=== PATIENT | male | born 1945 | race African-American/Black ===

== ENCOUNTER 2017-09-19 08:08 | Emergency (ER) | payer MEDICARE ==
[~2017-09-19] VITALS: Ht 190.5 cm; Wt 106.5 kg
[2017-09-19 08:30] VITALS: BP 203/122; PULSE 90; RESP 16; TEMP 98.3; O2SAT 98
[2017-09-19] MEDS ORDERED: SODIUM CHLORIDE 0.9% FLUSH 10 ML FLUSH IVF PRN (08:30)
[2017-09-19] MEDS ORDERED: LISINOPRIL 20 MG TAB PO ONE (08:30)
[2017-09-19] MEDS ORDERED: TETANUS/DIPHTHERIA TOXOID ADULT 0.5 ML VIAL IM ONE (08:30)
[2017-09-19] MEDS ORDERED: ceFAZolin 2 GM PREMIX 50 ML IV ONE (08:30)
[2017-09-19] MEDS ORDERED: LIDOCAINE HCL 1% 20 ML VIAL INFIL ONE (08:45)
[2017-09-19 08:56] LABS: AUTOMATED NEUTROPHIL # 2.6 TH/MM3 (1.8-7.7); EOSINOPHIL # 0.1 TH/MM3 (0-0.4); EOSINOPHIL % 1.6 % (0.0-4.0); HEMATOCRIT 43.3 % (39.0-51.0); HEMOGLOBIN 14.6 GM/DL (13.0-17.0); LYMPH % 34.9 % (9.0-44.0); LYMPHOCYTE # 1.6 TH/MM3 (1.0-4.8); MEAN CELL VOLUME 79.2 FL (80.0-100.0); MEAN CORPUSCULAR HEMOGLOBIN 26.7 PG (27.0-34.0); MEAN CORPUSCULAR HGB CONC 33.7 % (32.0-36.0); MEAN PLATELET VOLUME 6.7 FL (7.0-11.0); MONO % 5.8 % (0.0-8.0); MONOCYTE # 0.3 TH/MM3 (0-0.9); NEUT % 56.7 % (16.0-70.0); PLATELET COUNT 274 TH/MM3 (150-450); RED BLOOD COUNT 5.47 MIL/MM3 (4.50-5.90); RED CELL DISTRIBUTION WIDTH 13.2 % (11.6-17.2); WHITE BLOOD COUNT 4.6 TH/MM3 (4.0-11.0)
[2017-09-19 09:05] LABS: BICARBONATE 29.6 MEQ/L (21.0-32.0); CALCIUM 8.7 MG/DL (8.5-10.1)
[2017-09-19] MEDS ORDERED: LIDOCAINE HCL 1% PF 10 ML VIAL ONE (09:12)
--- NOTE | 2017-09-19 09:13 | RADRPT ---
EXAM DATE/TIME: 09/19/2017 08:48 [facility] COMPARISON: No previous studies available for comparison. INDICATIONS : Dislocation & laceration to anterior aspect of right hand second digit post fall today. MEDICAL HISTORY : Hypertension. SURGICAL HISTORY : None. ENCOUNTER: Initial ACUITY: 1 day PAIN SCORE: 5/10 LOCATION: Right hand second digit FINDINGS: 3 views of the right second finger reveal an acute dislocation involving the PIP joint of the second finger. The middle phalanx has been displaced towards the dorsum of the proximal phalanx. No fracture appreciated. Soft tissue swelling noted. Remaining bony structures are unremarkable. CONCLUSION: Dislocation at the PIP joint of the second finger without discrete fracture. Gil Mccabe Jr., MD on September 19, 2017 at 9:10 Board Certified Radiologist. This report was verified electronically.
[2017-09-19] MEDS ORDERED: ASPI81TA23 PO (09:33)
[2017-09-19] MEDS ORDERED: LISI-515 PO (09:33)
[2017-09-19 09:48] VITALS: BP 173/84; PULSE 59; RESP 16; O2SAT 96
[2017-09-19] MEDS ORDERED: CEPH-460 PO (09:48)
--- NOTE | 2017-09-19 09:56 | PD ---
HPI Chief Complaint: Injury Time Seen by Provider: 08:12 Travel History International Travel<30 days: No Contact w/Intl Traveler<30days: No Traveled to known affect area: No History of Present Illness HPI The patient 71 years old and upon his morning walk attempted to jump from a ramp resulting in a trip and fall onto outstretched right hand. He injured the right index finger and struck the right upper lip upon the ground as well as the right knee. He was ambulatory immediately thereafter. No loss of consciousness or syncopal/presyncopal symptoms preceded the fall. Very mild continuous pain is reported at the right index finger with a gross dislocation and blood. Onset sudden. Duration about 30 minutes prior to ER arrival. He does not recall last tetanus. PFSH Past Medical History Hx Anticoagulant Therapy: Yes (asa 81mg once a week) Cardiovascular Problems: Yes (htn on meds) Hypertension: Yes Tetanus Vaccination: < 5 Years Influenza Vaccination: Yes Past Surgical History Other Surgery: Yes (bilat bunionectomy) Social History Alcohol Use: No Tobacco Use: No Allergies-Medications (Allergen,Severity, Reaction): Coded Allergies: No Known Allergies (Unverified , 09/19/17) Reported Meds & Prescriptions Reported Meds & Active Scripts Active Reported Aspirin EC (Aspirin) 81 Mg Tabdr 81 Mg PO WEEKLY Lisinopril 20 Mg Tab 20 Mg PO DAILY Review of Systems Except as stated in HPI: all other systems reviewed are Neg General / Constitutional: No: Fever Cardiovascular: No: Chest Pain or Discomfort, Palpitations, Tachycardia Respiratory: No: Shortness of Breath Physical Exam Narrative GENERAL: 71-year-old male well-nourished well-developed SKIN: Warm and dry. HEAD: Trace abrasion of the right upper lip. There is swelling and tenderness in the right upper lip. Friend dentition is normal. Normocephalic. EYES: Pupils equal and round. No scleral icterus. No injection or drainage. ENT: No nasal bleeding or discharge. Mucous membranes pink and moist. NECK: Trachea midline. No JVD. CARDIOVASCULAR: Regular rate and rhythm. RESPIRATORY: No accessory muscle use. Clear to auscultation. Breath sounds equal bilaterally. GASTROINTESTINAL: Abdomen soft, non-tender, nondistended. Hepatic and splenic margins not palpable. MUSCULOSKELETAL: Right index finger shows a gross deformity with a laceration of about 2 cm with bone protruding through. There is preserved passive range of motion of the right index finger. Sensation is preserved to the distal phalanges of the right index finger. The trace abrasion overlying the right patella. NEUROLOGICAL: Awake and alert. No obvious cranial nerve deficits. Motor grossly within normal limits. Five out of 5 muscle strength in the arms and legs. Normal speech. PSYCHIATRIC: Appropriate mood and affect; insight and judgment normal. Data Data Last Documented VS Vital Signs Date Time Temp Pulse Resp B/P (MAP) Pulse Ox O2 Delivery O2 Flow Rate FiO2 09/19/17 09:04 88 16 98 Room Air 09/19/17 08:30 98.3 203/122 (149) Orders Orders Basic Metabolic Panel (Bmp) (09/19/17 08:12) Complete Blood Count With Diff (09/19/17 08:12) Iv Access Insert/Monitor (09/19/17 08:12) Wound Care (09/19/17 08:12) Finger ([id number]) (09/19/17 ) Cefazolin 2 Gm Premix (Ancef 2 Gm Premix (09/19/17 08:30) Lisinopril (Prinivil) (09/19/17 08:30) Sodium Chloride 0.9% Flush (Ns Flush) (09/19/17 08:30) Tetanus/Diphtheria Tox Adult (Tetanus/Di (09/19/17 08:30) Lidocaine 1% Inj (Xylocaine 1% Inj) (09/19/17 08:45) Lidocaine Pf 1% Inj (Xylocaine-Mpf 1% In (09/19/17 09:12) Finger ([id number]) (09/19/17 ) Support Splint (09/19/17 09:22) Labs Laboratory Tests Test 09/19/17 08:45 White Blood Count 4.6 TH/MM3 Red Blood Count 5.47 MIL/MM3 Hemoglobin 14.6 GM/DL Hematocrit 43.3 % Mean Corpuscular Volume 79.2 FL Mean Corpuscular Hemoglobin 26.7 PG Mean Corpuscular Hemoglobin Concent 33.7 % Red Cell Distribution Width 13.2 % Platelet Count 274 TH/MM3 Mean Platelet Volume 6.7 FL Neutrophils (%) (Auto) 56.7 % Lymphocytes (%) (Auto) 34.9 % Monocytes (%) (Auto) 5.8 % Eosinophils (%) (Auto) 1.6 % Basophils (%) (Auto) 1.0 % Neutrophils # (Auto) 2.6 TH/MM3 Lymphocytes # (Auto) 1.6 TH/MM3 Monocytes # (Auto) 0.3 TH/MM3 Eosinophils # (Auto) 0.1 TH/MM3 Basophils # (Auto) 0.0 TH/MM3 CBC Comment DIFF FINAL Differential Comment Blood Urea Nitrogen 13 MG/DL Creatinine 1.00 MG/DL Random Glucose 157 MG/DL Calcium Level 8.7 MG/DL Sodium Level 135 MEQ/L Potassium Level 3.6 MEQ/L Chloride Level 102 MEQ/L Carbon Dioxide Level 29.6 MEQ/L Anion Gap 3 MEQ/L Estimat Glomerular Filtration Rate 89 ML/MIN MDM Medical Decision Making Medical Screen Exam Complete: Yes Emergency Medical Condition: Yes Differential Diagnosis Open fracture, open dislocation, dislocation, nerve injury, arterial injury Narrative Course Sensation preserved before and after reduction along with brisk capillary refill. Dr. Armenta was called by me on his cell phone at 9:35 AM with a request for a return phone call. I spoke with Dr. Armenta at about 950. The patient at the time of repeat assessment had a mild swan neck deformity concernign for tendon injury however pt was able to flex at all joints. The wound was sutured shut. The patient will follow-up with Dr. Collado in 3-4 days as an outpatient. Keflex prescription. Return precautions discussed. Sutures placed by YIN Rhoades. Procedures Procedure Narrative JOINT reduction: The right index finger was anesthetized with 2% lidocaine via a digital block at the base. Adequate analgesia was achieved and then the injury was irrigated with Diagnosis Primary Impression: Open finger dislocation Qualified Codes: S63.259A - Unspecified dislocation of unspecified finger, initial encounter; S61.209A - Unspecified open wound of unspecified finger without damage to nail, initial encounter Additional Impression: Finger laceration with complication Qualified Codes: S61.219A - Laceration without foreign body of unspecified finger without damage to nail, initial encounter Referrals: Jose Powell MD 1 day Med/Other Pt SpecificInfo: Prescription(s) given Scripts Cephalexin (Keflex) 500 Mg Cap 500 MG PO Q8H for Infection, #30 CAP 0 Refills Prov: Idris Cuenca MD 09/19/17 Disposition: 01 DISCHARGE HOME Condition: Stable Idris Cuenca MD Sep 19, 2017 09:56
--- NOTE | 2017-09-19 10:04 | RADRPT ---
EXAM DATE/TIME: 09/19/2017 09:32 [facility] COMPARISON: FINGER RIGHT 2ND DIGIT ([id number]), September 19, 2017, 8:48. INDICATIONS : Post reduction right hand second digit. MEDICAL HISTORY : Hypertension. SURGICAL HISTORY : None. ENCOUNTER: Subsequent ACUITY: 1 day PAIN SCORE: 0/10 LOCATION: Right hand second digit FINDINGS: 3 views of the right second finger show successful reduction of the previously seen PIP dislocation. No fracture observed. Soft tissue swelling noted. CONCLUSION: Successful reduction. Gil Mccabe Jr., MD on September 19, 2017 at 10:01 Board Certified Radiologist. This report was verified electronically.
[2017-09-19 10:24] VITALS: BP 186/82
--- NOTE | 2017-09-19 11:02 | PD ---
Physical Exam Time Seen by Provider: 10:00 (Della Rhoades) Data Data Last Documented VS Vital Signs Date Time Temp Pulse Resp B/P (MAP) Pulse Ox O2 Delivery O2 Flow Rate FiO2 09/19/17 10:24 86 16 186/82 (116) 96 09/19/17 09:48 Room Air 09/19/17 08:30 98.3 (Idris Cuenca MD) Orders Orders Basic Metabolic Panel (Bmp) (09/19/17 08:12) Complete Blood Count With Diff (09/19/17 08:12) Iv Access Insert/Monitor (09/19/17 08:12) Wound Care (09/19/17 08:12) Finger ([id number]) (09/19/17 ) Cefazolin 2 Gm Premix (Ancef 2 Gm Premix (09/19/17 08:30) Lisinopril (Prinivil) (09/19/17 08:30) Sodium Chloride 0.9% Flush (Ns Flush) (09/19/17 08:30) Tetanus/Diphtheria Tox Adult (Tetanus/Di (09/19/17 08:30) Lidocaine 1% Inj (Xylocaine 1% Inj) (09/19/17 08:45) Lidocaine Pf 1% Inj (Xylocaine-Mpf 1% In (09/19/17 09:12) Finger ([id number]) (09/19/17 ) Support Splint (09/19/17 09:22) Ed Discharge Order (09/19/17 09:56) Finger Splint (09/19/17 ) (Idris Cuenca MD) Labs Laboratory Tests Test 09/19/17 08:45 09/19/17 09:45 White Blood Count 4.6 TH/MM3 Red Blood Count 5.47 MIL/MM3 Hemoglobin 14.6 GM/DL Hematocrit 43.3 % Mean Corpuscular Volume 79.2 FL Mean Corpuscular Hemoglobin 26.7 PG Mean Corpuscular Hemoglobin Concent 33.7 % Red Cell Distribution Width 13.2 % Platelet Count 274 TH/MM3 Mean Platelet Volume 6.7 FL Neutrophils (%) (Auto) 56.7 % Lymphocytes (%) (Auto) 34.9 % Monocytes (%) (Auto) 5.8 % Eosinophils (%) (Auto) 1.6 % Basophils (%) (Auto) 1.0 % Neutrophils # (Auto) 2.6 TH/MM3 Lymphocytes # (Auto) 1.6 TH/MM3 Monocytes # (Auto) 0.3 TH/MM3 Eosinophils # (Auto) 0.1 TH/MM3 Basophils # (Auto) 0.0 TH/MM3 CBC Comment DIFF FINAL Differential Comment Blood Urea Nitrogen 13 MG/DL Creatinine 1.00 MG/DL Random Glucose 157 MG/DL Calcium Level 8.7 MG/DL Sodium Level 135 MEQ/L Potassium Level 3.6 MEQ/L Chloride Level 102 MEQ/L Carbon Dioxide Level 29.6 MEQ/L Anion Gap 3 MEQ/L Estimat Glomerular Filtration Rate 89 ML/MIN (Idris Cuenca MD) MDM Medical Record Reviewed: Yes Supervised Visit with ANAYA: Yes Narrative Course I was asked by Dr. Cuenca to repair laceration on this patient. Please see his note for further details. (Della Rhoades) Procedures Procedure Narrative LACERATION LOCATION: Right second finger LENGTH: 2 cm NUMBER OF STITCHES/ARMANDO: 5 simple interrupted REPAIR: The area of the laceration was prepped with Betadine and sterilely draped. Digital block performed by Dr. Cuenca. The wound was copiously irrigated and explored without evidence of foreign body or neurovascular injury. The wound was closed using 5-0 Prolene. This was a single layer repair. A sterile dressing was applied. The patient was advised to keep the dressing clean and dry. Patient tolerated the procedure well. (Della Rhoades) Diagnosis Primary Impression: Open finger dislocation Additional Impression: Finger laceration with complication Referrals: Jose Powell MD 1 day Patient Instructions: General Instructions, Finger Laceration (ED), Finger Dislocation (ED) Departure Forms: Tests/Procedures Scripts Cephalexin (Keflex) 500 Mg Cap 500 MG PO Q8H for Infection, #30 CAP 0 Refills Prov: Idris Cuenca MD 09/19/17 Disposition: 01 DISCHARGE HOME Condition: Stable Della Rhoades Sep 19, 2017 11:02 Idris Cuenca MD Sep 19, 2017 16:25
== END 2017-09-19 10:42 | disposition home or self-care (01) ==
LOC: PHED 08:08
DX: S63.250A Unspecified dislocation of right index finger, initial encounter (principal); S61.210A Laceration without foreign body of right index finger without damage to nail, initial encounter; W10.2XXA Fall (on)(from) incline, initial encounter; Y93.39 Activity, other involving climbing, rappelling and jumping off; I10 Essential (primary) hypertension; Z79.82 Long term (current) use of aspirin; Z23 Encounter for immunization
CPT/HCPCS: 12001; 26770; 73140; 80048; 85025; 90471; 90714; 96365; 99284; J0690